=== PATIENT | male | born 1960 | race Caucasian/White ===

== ENCOUNTER 2016-07-14 10:21 | Emergency (ER) | payer MEDICARE ==
[~2016-07-14] VITALS: Ht 180.3 cm; Wt 80.0 kg
[2016-07-14 10:26] VITALS: BP 134/77; PULSE 92; RESP 20; TEMP 97.9; O2SAT 96
[2016-07-14] MEDS ORDERED: IBUP800T23 PO (10:58)
--- NOTE | 2016-07-14 10:58 | PD ---
HPI Chief Complaint: Injury Time Seen by Provider: 10:40 Travel History International Travel<30 days: No Contact w/Intl Traveler<30days: No Traveled to known affect area: No History of Present Illness HPI Patient is a 55-year-old male who presented to emergency for evaluation of right knee pain. Patient states pain is been ongoing for several months, it exacerbated for the last 3 days. Patient denies any injury or trauma, swelling , fevers, redness. He reports the pain is a 4 out of 10, and states he feels better now than it did earlier today. [facility] Past Medical History Medical History: Denies Significant Hx Family History Family History: Negative Social History Alcohol Use: Yes Tobacco Use: Yes Substance Use: No Review of Systems Except as stated in HPI: all other systems reviewed are Neg Musculoskeletal: Positive: Myalgias, Arthralgias Physical Exam Narrative GENERAL: Well-nourished, well-developed patient. SKIN: Warm and dry. HEAD: Normocephalic. EYES: No scleral icterus. No injection or drainage. NECK: Supple, trachea midline. No JVD or lymphadenopathy. CARDIOVASCULAR: Regular rate and rhythm without murmurs, gallops, or rubs. RESPIRATORY: Breath sounds equal bilaterally. No accessory muscle use. GASTROINTESTINAL: Abdomen soft, non-tender, nondistended. MUSCULOSKELETAL: No cyanosis, or edema. No erythema noted to right knee. 5/5 muscle strength in bilateral lower extremities. Negative anterior drawer. Patient is neurovascularly intact. BACK: Nontender without obvious deformity. No CVA tenderness. Data Data Last Documented VS Vital Signs Date Time Temp Pulse Resp B/P Pulse Ox O2 Delivery O2 Flow Rate FiO2 07/14/16 10:26 97.9 92 20 134/77 96 Room Air [facility] Medical Decision Making Medical Screen Exam Complete: Yes Emergency Medical Condition: Yes Interpretation(s) Vital Signs Date Time Temp Pulse Resp B/P Pulse Ox O2 Delivery O2 Flow Rate FiO2 07/14/16 10:26 97.9 92 20 134/77 96 Room Air Differential Diagnosis Osteoarthritis versus sprain versus strain versus other Narrative Course Patient's 55-year-old male who presented to emergency for evaluation of right knee pain that is exacerbated for approximately 3 days been ongoing for several months. He denies any new injury or trauma. Patient is neurovascularly intact , physical examination is benign. Patient is encouraged to take acetaminophen or ibuprofen as needed and instructed for pain, also he denies to affected area , and follow-up with a primary doctor. He is encouraged to return to emergency department for any new or worsening symptoms. Patient stable for discharge. Diagnosis Primary Impression: Knee pain Qualified Code: M25.561 - Right knee pain, unspecified chronicity Referrals: [facility] Patient Instructions: Arthritis (ED), General Instructions, Knee Pain (ED) Additional Instructions: Take medications as directed Alternate heat and ice to affected area, continue range of motion exercises, avoid bed rest, avoid exacerbating activities Follow-up with your primary doctor Return to emergency department for any new or worsening symptoms Med/Other Pt SpecificInfo: Prescription(s) given Scripts Ibuprofen 800 Mg [id number] Mg PO Q8H PRN (Pain/Inflammation) #60 TAB Ref 0 Prov:Willow Brewer 07/14/16 Disposition: 01 DISCHARGE HOME Condition: Stable Willow Brewer Jul 14, 2016 10:58
== END 2016-07-14 11:17 | disposition home or self-care (01) ==
LOC: NEPB 10:21
DX: M25.561 Pain in right knee (principal); Z72.0 Tobacco use
CPT/HCPCS: 99283

== ENCOUNTER 2016-07-29 07:30 | Emergency (ER) | payer MEDICARE ==
[~2016-07-29 07:30] MED LIST: IBUP800T23 PO
[2016-07-29 07:39] VITALS: BP 134/66; PULSE 114; RESP 28; TEMP 99; O2SAT 99
[2016-07-29 07:45] VITALS: BP 134/66; PULSE 112; PULSE 113; RESP 24; RESP 26; TEMP 98.1; O2SAT 99
[2016-07-29 07:50] VITALS: RESP 24; O2SAT 99
[2016-07-29] MEDS ORDERED: PENI250T59 PO (07:52)
[2016-07-29] MEDS ORDERED: ATEN25TA PO ×2 (07:52→08:39)
--- NOTE | 2016-07-29 07:55 | PD ---
HPI Chief Complaint: Respiratory Symptoms Time Seen by Provider: 07:39 Travel History International Travel<30 days: No Contact w/Intl Traveler<30days: No Traveled to known affect area: No History of Present Illness HPI Diagnoses a 55-year-old gentleman with history of hypertension, COPD, who presents today with complaints of shortness of breath 2 days. The patient denies any fevers, chills. The patient does state that he does not have a nebulizer although he was supposed to be prescribed 1 when he lived in [place]. Patient does report a productive cough with white, yellow, green phlegm. Denies any chest pain, chest pressure. The patient also reports that he is not taking any blood pressure and since April. He states he is supposed to be taking atenolol 25 mg by mouth daily. There are no other complaints time my examination. PFSH Past Medical History Autoimmune Disease: Yes (rheumatic fever) COPD: Yes Influenza Vaccination: Yes Social History Alcohol Use: Yes (on occasion) Tobacco Use: Yes (1 ppd) Substance Use: No Allergies-Medications (Allergen,Severity, Reaction): Coded Allergies: No Known Allergies (Unverified , 07/29/16) Reported Meds & Prescriptions Reported Meds & Active Scripts Active Medrol Dosepak (Methylprednisolone) 4 Mg Dspk 4 Mg PO DIRECTED Per Pharmacist direction Zithromax Z-Terrence (Azithromycin) 250 Mg Dspk 250 Mg PO DIRECTED 500 MG (2 tabs) day 1, then 1 tab days 2-5. Ventolin Hfa 18 GM Inh (Albuterol Sulfate) 90 Mcg/Act Aer 1 Puff INH Q4H PRN Atenolol 25 Mg Tab 25 Mg PO DAILY Reported Penicillin Vk (Penicillin V Potassium) 250 Mg Tab 250 Mg PO BID Atenolol 25 Mg Tab 25 Mg PO DAILY Review of Systems Except as stated in HPI: all other systems reviewed are Neg (nursing notes were evaluated including past medical history and surgical history.) General / Constitutional: No: Fever, Chills HENT: No: Headaches, Lightheadedness Cardiovascular: No: Chest Pain or Discomfort, Palpitations Respiratory: Positive: Cough (white, yellow, green phlegm.), Shortness of Breath, Wheezing Gastrointestinal: No: Nausea, Vomiting, Abdominal Pain Musculoskeletal: No: Myalgias, Arthralgias Neurologic: No: Weakness, Dizziness Physical Exam Narrative GENERAL: Well-developed well-nourished gentleman in no acute respiratory distress. The patient does appear to be somewhat disheveled. SKIN: Warm and dry. HEAD: Atraumatic. Normocephalic. EYES: No scleral icterus. No injection or drainage. ENT: No nasal bleeding or discharge. NECK: Trachea midline. Supple. CARDIOVASCULAR: Tachycardic rate at 104. The patient has no obvious murmurs gallops rubs. RESPIRATORY: No accessory muscle use. Bilateral expiratory wheezes. No Rales appreciated. GASTROINTESTINAL: Abdomen soft, non-tender, nondistended. MUSCULOSKELETAL: No obvious deformities. No edema. NEUROLOGICAL: Awake and alert. No obvious cranial nerve deficits. Motor grossly within normal limits. Normal speech. PSYCHIATRIC: Appropriate mood and affect; insight and judgment normal. Data Data Last Documented VS Vital Signs Date Time Temp Pulse Resp B/P Pulse Ox O2 Delivery O2 Flow Rate FiO2 07/29/16 08:07 97 Nasal Cannula 4.00 07/29/16 07:50 24 07/29/16 07:45 98.1 113 134/66 Orders Complete Blood Count With Diff (07/29/16 07:47) Basic Metabolic Panel (Bmp) (07/29/16 07:47) Ckmb (Isoenzyme) Profile (07/29/16 07:47) Troponin I (07/29/16 07:47) Iv Access Insert/Monitor (07/29/16 07:47) Ecg Monitoring (07/29/16 07:47) Oximetry (07/29/16 07:47) Oxygen Administration (07/29/16 07:47) Chest, Single Ap (07/29/16 07:47) Sodium Chloride 0.9% Flush (Ns Flush) (07/29/16 08:00) Albuterol-Ipratropium Neb (Duoneb Neb) (07/29/16 08:00) CKMB (07/29/16 07:56) CKMB% (07/29/16 07:56) Labs Laboratory Tests Test 07/29/16 07:56 White Blood Count 12.2 TH/MM3 Red Blood Count 4.85 MIL/MM3 Hemoglobin 14.2 GM/DL Hematocrit 42.5 % Mean Corpuscular Volume 87.6 FL Mean Corpuscular Hemoglobin 29.4 PG Mean Corpuscular Hemoglobin 33.5 % Concent Red Cell Distribution Width 17.0 % Platelet Count 306 TH/MM3 Mean Platelet Volume 8.6 FL Neutrophils (%) (Auto) 78.8 % Lymphocytes (%) (Auto) 10.4 % Monocytes (%) (Auto) 7.8 % Eosinophils (%) (Auto) 2.2 % Basophils (%) (Auto) 0.8 % Neutrophils # (Auto) 9.6 TH/MM3 Lymphocytes # (Auto) 1.3 TH/MM3 Monocytes # (Auto) 1.0 TH/MM3 Eosinophils # (Auto) 0.3 TH/MM3 Basophils # (Auto) 0.1 TH/MM3 CBC Comment DIFF FINAL Differential Comment Sodium Level 139 MEQ/L Potassium Level 4.7 MEQ/L Chloride Level 106 MEQ/L Carbon Dioxide Level 26.3 MEQ/L Anion Gap 7 MEQ/L Blood Urea Nitrogen 9 MG/DL Creatinine 1.15 MG/DL Estimat Glomerular Filtration 66 ML/MIN Rate Random Glucose 115 MG/DL Calcium Level 8.6 MG/DL Total Creatine Kinase 141 U/L Creatine Kinase MB 2.0 NG/ML Troponin I LESS THAN 0.02 NG/ML MDM Medical Decision Making Medical Screen Exam Complete: Yes Emergency Medical Condition: Yes Medical Record Reviewed: Yes (significant only for previous visit of knee pain. ) Differential Diagnosis COPD exacerbation versus pneumonia versus acute coronary syndrome Narrative Course 55-year-old gentleman history of COPD, hypertension, who presents via [facility] with shortness of breath. The patient states it started yesterday. The patient does not currently have albuterol or nebulizer at home. He states he was supposed to have one but he moved from [place] to [facility] and April and never followed up. He is also supposed to be on atenolol for his blood pressure but has not been on it since April as well. He was given 2 nebulizer treatments and Solu-Medrol via EMS prior to arrival. He's been given 1 DuoNeb here. On reexamination one hour after his nebulizer treatment, he was noted to be asleep with saturations of 98%. On reexamination, his wheezing is much improved. I'll discharge the patient. I've asked case management come in and see the patient and give information on outpatient follow up. I've written a prescription for his atenolol, and albuterol inhaler, a Medrol Dosepak, and azithromycin. The azithromycin was given because the patient reported colored phlegm and this is likely a COPD exacerbation with bronchitis. Nursing notes were reviewed. This includes past medical and social history. Diagnosis Primary Impression: COPD exacerbation Additional Impressions: Bronchitis Hypertension Medication refill Tobacco use Additional Instructions: It is important that you follow up with a primary care physician. Return if feeling worse, fevers chills, or any other reason. Stop using tobacco products. Scripts Methylprednisolone Dosepak (Medrol Dosepak)4 Mg Dspk4 Mg PO DIRECTED #1 DSPK Ref 0 Per Pharmacist direction Prov:Kulwinder Lott MD 07/29/16 Azithromycin (Zithromax Z-Terrence)250 Mg [id number] Mg PO DIRECTED #1 DSPK Ref 0 500 MG (2 tabs) day 1, then 1 tab days 2-5. Prov:Kulwinder Lott MD 07/29/16 Albuterol 18 GM Inh (Ventolin Hfa 18 GM Inh)90 Mcg/Act Aer1 Puff INH Q4H PRN ( SHORTNESS OF BREATH) #1 INHALER Ref 0 Prov:Kulwinder Lott MD 07/29/16 Atenolol 25 Mg Tab25 Mg PO DAILY #30 TAB Ref 1 Prov:Kulwinder Lott MD 07/29/16 Disposition: 01 DISCHARGE HOME Condition: Stable Kulwinder Lott MD Jul 29, 2016 07:55
[2016-07-29 07:59] VITALS: O2SAT 99
[2016-07-29] MEDS ORDERED: SODIUM CHLORIDE 0.9% FLUSH 5 ML FLUSH IVF PRN (08:00)
[2016-07-29] MEDS ORDERED: RESP: ALBUTEROL 2.5 MG/IPRATROPIUM 0.5 MG NEB (SCH) INH ONE (08:00)
[2016-07-29 08:07] VITALS: O2SAT 97
[2016-07-29 08:08] LABS: AUTOMATED NEUTROPHIL # 9.6 TH/MM3 (1.8-7.7); BASOPHIL # 0.1 TH/MM3 (0-0.2); BASOPHIL % 0.8 % (0.0-2.0); EOSINOPHIL # 0.3 TH/MM3 (0-0.4); EOSINOPHIL % 2.2 % (0.0-4.0); HEMATOCRIT 42.5 % (39.0-51.0); HEMO FLAGS DIFF FINAL; LYMPH % 10.4 % (9.0-44.0); LYMPHOCYTE # 1.3 TH/MM3 (1.0-4.8); MEAN CELL VOLUME 87.6 FL (80.0-100.0); MEAN CORPUSCULAR HEMOGLOBIN 29.4 PG (27.0-34.0); MEAN CORPUSCULAR HGB CONC 33.5 % (32.0-36.0); MONO % 7.8 % (0.0-8.0); NEUT % 78.8 % (16.0-70.0); PLATELET COUNT 306 TH/MM3 (150-450); RED BLOOD COUNT 4.85 MIL/MM3 (4.50-5.90); WHITE BLOOD COUNT 12.2 TH/MM3 (4.0-11.0)
[2016-07-29 08:32] LABS: BLOOD UREA NITROGEN 9 MG/DL (7-18); CHLORIDE 106 MEQ/L (98-107); CREATINE KINASE 141 U/L (39-308); GLOMERULAR FILTRATION RATE 66 ML/MIN (>89); SODIUM (NA) 139 MEQ/L (136-145)
[2016-07-29 08:33] LABS: POTASSIUM 4.7 MEQ/L (3.5-5.1)
[2016-07-29 08:36] LABS: ANION GAP 7 MEQ/L (5-15); BICARBONATE 26.3 MEQ/L (21.0-32.0)
[2016-07-29] MEDS ORDERED: VENTAER INH (08:39)
[2016-07-29] MEDS ORDERED: MEDR4PAK PO (08:41)
[2016-07-29] MEDS ORDERED: ZITHTAB PO (08:41)
--- NOTE | 2016-07-29 10:07 | RADRPT ---
EXAM DATE/TIME: 07/29/2016 07:52 [facility] COMPARISON: No previous studies available for comparison. INDICATIONS : Shortness of breath. MEDICAL HISTORY : Chronic obstructive pulmonary disease. SURGICAL HISTORY : None. ENCOUNTER: Initial ACUITY: 2 days PAIN SCORE: 0/10 LOCATION: Bilateral chest FINDINGS: A single view of the chest demonstrates the lungs to be symmetrically aerated without evidence of mas s, infiltrate or definite effusion. There is chronic scarring in both lungs. There are multiple overl joey electrocardiogram leads. There is mild blunting of the right lateral costophrenic angle. Mild at herosclerotic changes are present in the aorta. The cardiomediastinal contours are unremarkable. Oss eous structures are intact. There are multiple overlying electrical leads. CONCLUSION: 1. Chronic scarring in both lungs. 2. Mild blunting of the right lateral costophrenic angle represents scarring versus small effusion. Chepe Slater MD on July 29, 2016 at 10:05 Board Certified Radiologist. This report was verified electronically.
[2016-07-29 11:39] VITALS: BP 135/84; TEMP 98.3
== END 2016-07-29 11:10 | disposition home or self-care (01) ==
LOC: NEPC 07:30
DX: J44.1 Chronic obstructive pulmonary disease with (acute) exacerbation (principal); J40 Bronchitis, not specified as acute or chronic; I10 Essential (primary) hypertension; F17.210 Nicotine dependence, cigarettes, uncomplicated
CPT/HCPCS: 71010; 80048; 82550; 82552; 84484; 85025; 94664

== ENCOUNTER 2016-09-28 15:50 | Emergency (ER) | payer MEDICARE ==
[~2016-09-28] VITALS: Ht 180.3 cm; Wt 80.0 kg
[~2016-09-28 15:50] MED LIST changes: +ATEN25TA PO; -IBUP800T23 PO; +MEDR4PAK PO; +PENI250T59 PO; +VENTAER INH; +ZITHTAB PO
[2016-09-28 16:03] VITALS: BP 137/61; PULSE 100; RESP 18; TEMP 98.2; O2SAT 95
[2016-09-28 16:10] VITALS: BP 137/61; PULSE 92; RESP 18; O2SAT 95
[2016-09-28] MEDS ORDERED: TETANUS/DIPHTHERIA TOXOID ADULT 0.5 ML VIAL IM ONE (16:15)
--- NOTE | 2016-09-28 16:40 | PD ---
HPI Chief Complaint: Fall Time Seen by Provider: 16:03 Travel History International Travel<30 days: No Contact w/Intl Traveler<30days: No Traveled to known affect area: No History of Present Illness HPI The patient is a 55-year-old male who presents to the emergency department via EMS for alcohol intoxication and a fall. The patient admits to drinking alcohol heavily, thinks he may have fell forward. The patient does not recall the events, is unsure if there was any loss of consciousness. He does complain of abrasions over the nose as well as a mild headache. The patient denies any neck pain, chest pain, shortness breath, nausea, vomiting, or abdominal pain. The patient does have a history of heavy alcohol use, is unable to quantify the amount of alcohol. He denies any illicit drug use. Last tetanus shot is unknown. Symptoms are moderate, exacerbated after drinking alcohol and possibly falling, and there are no current alleviating factors. PFSH Past Medical History Autoimmune Disease: Yes (rheumatic fever) COPD: Yes ?: Not Social History Alcohol Use: Yes (abuse, see previous admissions) Tobacco Use: Yes (1 ppd) Substance Use: No Allergies-Medications (Allergen,Severity, Reaction): Coded Allergies: No Known Allergies (Unverified , 07/29/16) Reported Meds & Prescriptions Reported Meds & Active Scripts Active Medrol Dosepak (Methylprednisolone) 4 Mg Dspk 4 Mg PO DIRECTED Per Pharmacist direction Zithromax Z-Terrence (Azithromycin) 250 Mg Dspk 250 Mg PO DIRECTED 500 MG (2 tabs) day 1, then 1 tab days 2-5. Ventolin Hfa 18 GM Inh (Albuterol Sulfate) 90 Mcg/Act Aer 1 Puff INH Q4H PRN Atenolol 25 Mg Tab 25 Mg PO DAILY Reported Penicillin Vk (Penicillin V Potassium) 250 Mg Tab 250 Mg PO BID Atenolol 25 Mg Tab 25 Mg PO DAILY Review of Systems Except as stated in HPI: all other systems reviewed are Neg General / Constitutional: No: Fever Eyes: No: Blurred Vision, Visual changes HENT: Positive: Headaches, No: Neck Pain Cardiovascular: No: Chest Pain or Discomfort Respiratory: No: Shortness of Breath Gastrointestinal: No: Nausea, Vomiting, Abdominal Pain Neurologic: No: Dizziness, Change in Mentation, Paresthesia, Sensory Disturbance Psychiatric: Positive: Substance Abuse (alcohol abuse) Physical Exam Narrative GENERAL: Awake, alert, 55-year-old male who appears his stated age and is in no acute respiratory distress. SKIN: Focused skin assessment warm/dry. Abrasions over the nasal area and across the forehead noted. HEAD: Atraumatic. Normocephalic. EYES: Pupils equal and round. Pupils are 4 mm bilateral and reactive. Mild nystagmus. ENT: No nasal bleeding or discharge. Blood noted in the posterior pharynx. NECK: Trachea midline. No JVD. Cervical collar in place. CARDIOVASCULAR: Regular rate and rhythm. No murmur appreciated. RESPIRATORY: No accessory muscle use. Clear to auscultation. Breath sounds equal bilaterally. GASTROINTESTINAL: Abdomen soft, non-tender, nondistended. No rebound tenderness. MUSCULOSKELETAL: No obvious deformities. No clubbing. No cyanosis. No edema. NEUROLOGICAL: Awake and alert. No obvious cranial nerve deficits. Motor grossly within normal limits. Normal speech. Moves all 4 extremities. Nonfocal. Oriented to place, but not month or year. PSYCHIATRIC: Appears intoxicated. Data Data Last Documented VS Vital Signs Date Time Temp Pulse Resp B/P Pulse Ox O2 Delivery O2 Flow Rate FiO2 09/28/16 16:10 92 18 137/61 95 Non-Rebreather 4 09/28/16 16:03 98.2 Orders Alcohol (Ethanol) (09/28/16 16:15) Complete Blood Count With Diff (09/28/16 16:15) Basic Metabolic Panel (Bmp) (09/28/16 16:15) Ct Brain W/O Iv Contrast(Rout) (09/28/16 ) Ct Cerv Spine W/O Contrast (09/28/16 ) Ct Facial Bones W/O Iv Cont (09/28/16 ) Tetanus/Diphtheria Tox Adult (Tetanus/Di (09/28/16 16:15) Labs Laboratory Tests Test 09/28/16 16:26 White Blood Count 10.4 TH/MM3 Red Blood Count 4.48 MIL/MM3 Hemoglobin 13.3 GM/DL Hematocrit 40.9 % Mean Corpuscular Volume 91.2 FL Mean Corpuscular Hemoglobin 29.6 PG Mean Corpuscular Hemoglobin 32.5 % Concent Red Cell Distribution Width 16.0 % Platelet Count 338 TH/MM3 Mean Platelet Volume 8.6 FL Neutrophils (%) (Auto) 60.2 % Lymphocytes (%) (Auto) 28.1 % Monocytes (%) (Auto) 6.7 % Eosinophils (%) (Auto) 3.8 % Basophils (%) (Auto) 1.2 % Neutrophils # (Auto) 6.3 TH/MM3 Lymphocytes # (Auto) 2.9 TH/MM3 Monocytes # (Auto) 0.7 TH/MM3 Eosinophils # (Auto) 0.4 TH/MM3 Basophils # (Auto) 0.1 TH/MM3 CBC Comment DIFF FINAL Differential Comment Sodium Level 140 MEQ/L Potassium Level 4.2 MEQ/L Chloride Level 106 MEQ/L Carbon Dioxide Level 21.7 MEQ/L Anion Gap 12 MEQ/L Blood Urea Nitrogen 12 MG/DL Creatinine 0.98 MG/DL Estimat Glomerular Filtration 79 ML/MIN Rate Random Glucose 87 MG/DL Calcium Level 8.2 MG/DL Ethyl Alcohol Level 306 MG/DL MDM Medical Decision Making Medical Screen Exam Complete: Yes Emergency Medical Condition: Yes Medical Record Reviewed: Yes Interpretation(s) Laboratory Tests Test 09/28/16 16:26 White Blood Count 10.4 TH/MM3 Red Blood Count 4.48 MIL/MM3 Hemoglobin 13.3 GM/DL Hematocrit 40.9 % Mean Corpuscular Volume 91.2 FL Mean Corpuscular Hemoglobin 29.6 PG Mean Corpuscular Hemoglobin 32.5 % Concent Red Cell Distribution Width 16.0 % Platelet Count 338 TH/MM3 Mean Platelet Volume 8.6 FL Neutrophils (%) (Auto) 60.2 % Lymphocytes (%) (Auto) 28.1 % Monocytes (%) (Auto) 6.7 % Eosinophils (%) (Auto) 3.8 % Basophils (%) (Auto) 1.2 % Neutrophils # (Auto) 6.3 TH/MM3 Lymphocytes # (Auto) 2.9 TH/MM3 Monocytes # (Auto) 0.7 TH/MM3 Eosinophils # (Auto) 0.4 TH/MM3 Basophils # (Auto) 0.1 TH/MM3 CBC Comment DIFF FINAL Differential Comment Sodium Level 140 MEQ/L Potassium Level 4.2 MEQ/L Chloride Level 106 MEQ/L Carbon Dioxide Level 21.7 MEQ/L Anion Gap 12 MEQ/L Blood Urea Nitrogen 12 MG/DL Creatinine 0.98 MG/DL Estimat Glomerular Filtration 79 ML/MIN Rate Random Glucose 87 MG/DL Calcium Level 8.2 MG/DL Ethyl Alcohol Level 306 MG/DL Last Impressions Maxillofacial CT 09/28/16 0000 Signed Impressions: Service Date/Time: Wednesday, September 28, 2016 16:51 - CONCLUSION: Nasal bone fracture with soft tissue swelling and soft tissue emphysema. Zachary Jacobo MD Head CT 09/28/16 0000 Signed Impressions: Service Date/Time: Wednesday, September 28, 2016 16:46 - CONCLUSION: No acute disease. Zachary Jacobo MD CT cervical spine reveals mild degenerative changes without evidence for acute fracture or listhesis. Differential Diagnosis Differential diagnosis includes alcohol intoxication, hyponatremia, closed head injury, intracranial hemorrhage, subarachnoid hemorrhage, cervical fracture, facial fracture. Narrative Course IV was established, labs are drawn and sent, and the patient was placed on cardiac telemetry monitoring and continuous pulse oximetry monitoring. CT of the brain, facial bones, and cervical spine was ordered. The patient was getting out of the bed, walking around naked, therefore, was placed in soft restraints. The patient also took his cervical collar off. The patient refused to wear the cervical collar. Alcohol level was elevated at 306. Sodium is normal. CT of the brain is negative for acute injury. CT the facial bones reveals a nasal bone fracture, some cutaneous emphysema, otherwise unremarkable. CT the cervical spine reveals mild degenerative changes. The patient will be allowed to sleep off the alcohol once he is able to ambulate and has a safe disposition home he will be discharged. Diagnosis Primary Impression: Alcohol intoxication Qualified Code: F10.120 - Alcohol intoxication, uncomplicated Additional Impression: Nasal bone fracture Qualified Code: S02.2XXA - Closed fracture of nasal bone, initial encounter Patient Instructions: General Instructions Additional Instructions: Decrease alcohol intake. Apply Polysporin to abrasions as needed. Ice to nose as needed. Nasal precautions. Follow-up with your primary physician. Med/Other Pt SpecificInfo: No Change to Meds Disposition: 01 DISCHARGE HOME Condition: Stable Carlton Jeong MD Sep 28, 2016 16:40
[2016-09-28 16:51] LABS: AUTOMATED NEUTROPHIL # 6.3 TH/MM3 (1.8-7.7); BASOPHIL # 0.1 TH/MM3 (0-0.2); BASOPHIL % 1.2 % (0.0-2.0); EOSINOPHIL # 0.4 TH/MM3 (0-0.4); EOSINOPHIL % 3.8 % (0.0-4.0); HEMATOCRIT 40.9 % (39.0-51.0); HEMO FLAGS DIFF FINAL; LYMPH % 28.1 % (9.0-44.0); LYMPHOCYTE # 2.9 TH/MM3 (1.0-4.8); MEAN CELL VOLUME 91.2 FL (80.0-100.0); MEAN CORPUSCULAR HEMOGLOBIN 29.6 PG (27.0-34.0); MEAN CORPUSCULAR HGB CONC 32.5 % (32.0-36.0); MONO % 6.7 % (0.0-8.0); NEUT % 60.2 % (16.0-70.0); PLATELET COUNT 338 TH/MM3 (150-450); RED BLOOD COUNT 4.48 MIL/MM3 (4.50-5.90); WHITE BLOOD COUNT 10.4 TH/MM3 (4.0-11.0)
[2016-09-28 17:18] LABS: BICARBONATE 21.7 MEQ/L (21.0-32.0); POTASSIUM 4.2 MEQ/L (3.5-5.1)
--- NOTE | 2016-09-28 17:18 | RADRPT ---
EXAM DATE/TIME: 09/28/2016 16:46 [facility] COMPARISON: No previous studies available for comparison. INDICATIONS : Fall, head trauma. RADIATION DOSE: 69.15 CTDIvol (mGy) MEDICAL HISTORY : Substance abuse, Rheumatic fever. SURGICAL HISTORY : None. ENCOUNTER: Initial ACUITY: 1 day PAIN SCALE: 9/10 LOCATION: Bilateral cranial TECHNIQUE: Multiple contiguous axial images were obtained of the head. Using automated exposure control and adj ustment of the mA and/or kV according to patient size, radiation dose was kept as low as reasonably a chievable to obtain optimal diagnostic quality images. 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 No fracture, intracranial hemorrhage, or signs of acute infarct. CONCLUSION: No acute disease. Zachary Jacobo MD on September 28, 2016 at 17:11 Board Certified Radiologist. This report was verified electronically.
--- NOTE | 2016-09-28 17:25 | RADRPT ---
EXAM DATE/TIME: 09/28/2016 16:51 [facility] COMPARISON: No previous studies available for comparison. INDICATIONS : Fall, trauma to face. RADIATION DOSE: 16.04 CTDIvol (mGy) MEDICAL HISTORY : Substance abuse, rheumatic fever. SURGICAL HISTORY : None. ENCOUNTER: Initial ACUITY: 1 day PAIN SCORE: 2/10 LOCATION: Bilateral face. TECHNIQUE: Volumetric scanning of the facial bones was performed. Using automated exposure control and adjustme nt of the mA and/or kV according to patient size, radiation dose was kept as low as reasonably achiev able to obtain optimal diagnostic quality images. FINDINGS: There is a mildly depressed comminuted fracture of the nasal bone with soft tissue emphysema seen. Th e remote fracture the right zygomatic arch is present. There is mild ethmoid and maxillary sinus muco tomy thickening. CONCLUSION: Nasal bone fracture with soft tissue swelling and soft tissue emphysema. Zachary Jacobo MD on September 28, 2016 at 17:23 Board Certified Radiologist. This report was verified electronically.
--- NOTE | 2016-09-28 17:31 | RADRPT ---
EXAM DATE/TIME: 09/28/2016 16:50 [facility] COMPARISON: No previous studies available for comparison. INDICATIONS : Fall, neck trauma. RADIATION DOSE: 35.85 CTDIvol (mGy) MEDICAL HISTORY : Substance abuse, Rheumatic fever. SURGICAL HISTORY : None. ENCOUNTER: Initial ACUITY: 1 day PAIN SCALE: 8/10 LOCATION: Bilateral neck region. TECHNIQUE: Volumetric scanning of the cervical spine was performed. Multiplanar reconstructions in the sagittal, coronal and oblique axial planes were performed. Using automated exposure control and adjustment o f the mA and/or kV according to patient size, radiation dose was kept as low as reasonably achievable to obtain optimal diagnostic quality images. FINDINGS: VERTEBRAE: Normal vertebral body height. ALIGNMENT: No evidence of subluxation. C2-C3: The bony spinal canal is normal in size. No evidence of disc bulge or herniation. The neural forami na are bilaterally patent. C3-C4: The bony spinal canal is normal in size. No evidence of disc bulge or herniation. The neural forami na are bilaterally patent. C4-C5: The bony spinal canal is normal in size. No evidence of disc bulge or herniation. The neural forami na are bilaterally patent. C5-C6: The bony spinal canal is normal in size. No evidence of disc bulge or herniation. The neural forami na are bilaterally patent. C6-C7: The bony spinal canal is normal in size. No evidence of disc bulge or herniation. The neural forami na are bilaterally patent. C7-T1: The bony spinal canal is normal in size. No evidence of disc bulge or herniation. The neural forami na are bilaterally patent. CONCLUSION: 1. Mild degenerative changes without evidence for acute fracture or listhesis. Zachary Jacobo MD on September 28, 2016 at 17:28 Board Certified Radiologist. This report was verified electronically.
[2016-09-28 17:58] VITALS: BP 110/65; PULSE 85; RESP 18; O2SAT 95
[2016-09-28 19:05] VITALS: BP 106/59; PULSE 84; RESP 18; O2SAT 93
== END 2016-09-28 19:56 | disposition home or self-care (01) ==
LOC: NEPE 15:50
DX: F10.129 Alcohol abuse with intoxication, unspecified (principal); S02.2XXA Fracture of nasal bones, initial encounter for closed fracture; R51 Headache; F17.210 Nicotine dependence, cigarettes, uncomplicated; W01.0XXA Fall on same level from slipping, tripping and stumbling without subsequent striking against object, initial encounter
CPT/HCPCS: 70450; 70486; 72125; 80048; 80307; 85025